=== PATIENT | female | born 2000 | race Caucasian/White ===

== ENCOUNTER 2018-09-07 03:01 | Emergency (ER) | payer SELFPAY ==
[2014-01-09 10:20] VITALS: Wt 83.9 kg
[~2018-09-07 03:01] MED LIST: CA C1TAB85 PO; LIOT25TA19 PO; MULT-964 PO
--- NOTE | 2018-09-07 03:04 | ER Report ---
History and Physical Time Seen By MD: 03:04 HPI/LISA CHIEF COMPLAINT: Vomiting HISTORY OF PRESENT ILLNESS: 17-year-old female presents ambulatory to the ER complaining of coughing and vomiting. She was seen yesterday in urgent care after being ill for a week. She was diagnosed with a sinus infection and obstructed eustachian tubes. She was placed on an antibiotic and Zofran was given for her nausea. Patient states she's been vomiting repetitively th roughout the night, unable to keep anything down. She did try to take a sublingual Zofran without success. Patient denies photophobia or stiff neck. REVIEW OF SYSTEMS: Respiratory: As above Cardiovascular: No chest pain, no palpitations. Gastrointestinal: As above Musculoskeletal: No back pain. Allergies: Coded Allergies: honey (Verified Allergy, Intermediate, rash , 09/07/18) Home Meds Reported Medications Amoxicillin/Potassium Clav (AMOX TR-K CLV 875-125 MG TAB) 1 Each Tablet, 1 TAB PO BID 09/07/18 Ondansetron 4 Mg Odt (ONDANSETRON 4 MG ODT) 4 Mg Tab.rapdis, 1 TAB PO Q4H 09/07/18 Discontinued Reported Medications Multivitamin With Minerals (MULTIVITAMINS WITH MINERALS) 1 Each Tablet, 1 EACH PO DAILY 01/11/14 Liothyronine Sodium (CYTOMEL) 25 Mcg Tablet, 12.5 MCG PO QAM, #15 1 Refill 01/11/14 Ca Cmb No.1/Vit D3/B-6/Fa/B12 (VITAMIN D3 1,000 UNIT TABLET) 1 Each Tablet, 1 EACH PO DAILY 01/11/14 Reviewed Nurses Notes: Yes Old Medical Records Reviewed: Yes Hx Smoking: No Smoking Status: Never Smoker Constitutional Vital Sign - Last 24 Hours 09/07/18 09/07/18 09/07/18 09/07/18 03:05 03:16 03:31 03:46 Temp 99.1 Pulse 85 90 89 89 Resp 16 B/P (MAP) 124/68 Pulse Ox 93 93 93 91 09/07/18 04:01 Pulse 73 Pulse Ox 92 Physical Exam General Appearance: The patient is alert, has no immediate need for airway protection and no current signs of toxicity. Vital signs stable, afebrile, pulse ox normal, skin warm, dry, pink HEENT: Pupils equal and round no injection. TMs bulging bilaterally, without erythema, oropharynx with moderate erythema, nasal passages are edematous with purulent drainage. There is sinus tenderness on percussion Respiratory: Chest is non tender, lungs are clear to auscultation. Cardiac: regular rate and rhythm Gastrointestinal: Abdomen is soft and non tender, no masses, bowel sounds normal. Musculoskeletal: Neck: Neck is supple and non tender. No meningismus., Positive anterior cervical lymphadenopathy Extremities have full range of motion and are non tender. Skin: No rashes or lesions. DIFFERENTIAL DIAGNOSIS: After history and physical exam differential diagnosis was considered for gastroenteritis, adverse reaction to medication, food poisoning, Medical Decision Making ED Course/Re-evaluation ED Course Patient was admitted to an examination room. H&P was done. The differential diagnosis was considered. On clinical examination. Patient has benign nonsurgical abdomen. She's been vomiting and coughing. Due to an upper respiratory infection. She tried sublingual Zofran without success. She's medicated with Phenergan 25 mg IM. After a brief period of observation. She is given Zofran sublingual and Robitussin-DM cough syrup 10 mL. On reevaluation at approximately 45 minutes one hour. She's feeling much better. She's sleeping comfortably. She is discharged home and advised to continue on her medications as prescribed. Decision to Disposition Date: Sep 07, 2018 Decision to Disposition Time: 03:55 Depart Departure Latest Vital Signs Vital Signs Date Time Temp Pulse Resp B/P (MAP) Pulse Ox O2 Delivery O2 Flow Rate FiO2 09/07/18 04:01 73 92 09/07/18 03:05 99.1 16 124/68 Impression: Primary Impression: Vomiting Additional Impressions: Coughing Sinus infection Condition: Improved Disposition: HOME OR SELF-CARE Referrals: JUAN C STRINGER MD (PCP) Patient Instructions: Acute Nausea and Vomiting (ED) Additional Instructions: Continue antibiotics, Zofran and [id number] medication as prescribed and recommended Follow-up with primary care if unimproved in 3-5 days Problem Qualifiers Primary Impression: Vomiting Vomiting type: unspecified Vomiting Intractability: unspecified Nausea presence: with nausea Qualified Codes: R11.2 - Nausea with vomiting, unspecified INOCENCIO PERRIN DO Sep 07, 2018 03:04
[2018-09-07 03:05] VITALS: BP 124/68
[2018-09-07] MEDS ORDERED: AMOX1TAB9 PO (03:12)
[2018-09-07] MEDS ORDERED: ONDA4TAB9 PO (03:12)
[2018-09-07] MEDS ORDERED: PROMETHAZINE 25 MG/ML 1 ML AMP IM ONE (03:15)
[2018-09-07] MEDS ORDERED: ONDANSETRON 4 MG ODT TABDP SL ONE (03:50)
[2018-09-07] MEDS ORDERED: GUAIFENESIN/DEXTROMETHORPHAN 5 ML PO ONE (03:50)
== END 2018-09-07 04:14 | disposition home or self-care (01) ==
LOC: ER 03:23
DX: J32.9 Chronic sinusitis, unspecified (principal); R11.10 Vomiting, unspecified; R05 Cough
CPT/HCPCS: 96372; 99283; J2550; S0119

== ENCOUNTER 2019-01-10 02:42 | Emergency (ER) | payer OTHER ==
[2014-01-09 10:20] VITALS: Wt 90.7 kg
[~2019-01-10 02:42] MED LIST changes: +AMOX1TAB9 PO; +ONDA4TAB9 PO
[2019-01-10 02:54] VITALS: BP 129/77
[2019-01-10] MEDS ORDERED: diphenhydrAMINE/ZINC OXI 28 GM TP ONE (03:10)
--- NOTE | 2019-01-10 03:45 | ER Report ---
History and Physical Time Seen By MD: 03:05 Hx. of Stated Complaint: had bc implant placed in left arm about 3 months ago. it's a little swollen tonight, started 45 minutes ago. pt concerned by the swelling HPI/ROS CHIEF COMPLAINT: Skin reaction to nexplanon HISTORY OF PRESENT ILLNESS: 18 f with left upper arm nexplanon implant; has had this for 3 yrs; current one was implanted 3 mo ago. Pt states for 3 yrs she has had intermittent reactions/rashes around site that seem to spontaneously come and go. Approx 1 hr ago she noted this developing and states that it is more rash than she has seen in the past. It is pruritic, not weeping/drianing. She has no fevers, chills, difficulty breathing, swelling. REVIEW OF SYSTEMS: Respiratory: No cough, no dyspnea. Cardiovascular: No chest pain, no palpitations. Gastrointestinal: No vomiting, no abdominal pain. Musculoskeletal: No back pain. Remainder of the 14 system rev: Yes Allergies: Coded Allergies: BEE STINGS (Verified Allergy, Severe, 01/10/19) honey (Verified Allergy, Intermediate, rash , 01/10/19) Home Meds Reported Medications Amoxicillin/Potassium Clav (AMOX TR-K CLV 875-125 MG TAB) 1 Each Tablet, 1 TAB PO BID 09/07/18 Discontinued Reported Medications Ondansetron 4 Mg Odt (ONDANSETRON 4 MG ODT) 4 Mg Tab.rapdis, 1 TAB PO Q4H 09/07/18 Reviewed Nurses Notes: Yes Hx Smoking: No Smoking Status: Never Smoker Constitutional Vital Sign - Last 24 Hours 01/10/19 02:54 Temp 98.7 Pulse 97 Resp 12 B/P (MAP) 129/77 Pulse Ox 95 O2 Delivery Room Air Physical Exam General Appearance: The patient is alert, has no immediate need for airway protection and no current signs of toxicity. Eyes: Pupils equal and round no injection. Respiratory: normal respirations Cardiac: regular rate and rhythm Musculoskeletal: Extremities have full range of motion and are non tender. Skin: 3x3cm erythema with excoriations surrounding nexplanon site. No induration, fluctuance. No drainage from site. DIFFERENTIAL DIAGNOSIS: After history and physical exam differential diagnosis was considered for cellulitis, abscess, infectious reaction, or other emergent etiology. Medical Decision Making ED Course/Re-evaluation ED Course appearance most c/w localized allergic reaction. I applied topical benadryl. Within 15 min, area had completely resolved. Suspect intermittent allergic rxn due to medication release. Pt given benadryl topical and d/c with SRP's. Decision to Disposition Date: Jan 10, 2019 Decision to Disposition Time: 03:45 Depart Departure Latest Vital Signs Vital Signs Date Time Temp Pulse Resp B/P (MAP) Pulse Ox O2 Delivery O2 Flow Rate FiO2 01/10/19 02:54 98.7 97 12 129/77 95 Room Air Impression: Primary Impression: Allergic reaction Condition: Improved Disposition: HOME OR SELF-CARE Referrals: JAQUELINE TRUONG (PCP) 1 Week Additional Instructions: as we discussed, you may use the topical cream as you need for redness/itching. Please return immediately for new pain, swelling, discharge, fevers, difficulty breathing, or any concerns. Problem Qualifiers Primary Impression: Allergic reaction Encounter type: initial encounter Qualified Codes: T78.40XA - Allergy, unspecified, initial encounter HILARIA YOST MD Jan 10, 2019 03:45
== END 2019-01-10 03:47 | disposition home or self-care (01) ==
LOC: ER 03:08
DX: T78.40XA Allergy, unspecified, initial encounter (principal)
CPT/HCPCS: 99282